=== PATIENT | male | born 1925 | race Caucasian/White ===

== ENCOUNTER 2016-06-05 06:02 | Day surgery (SDC) | payer MEDICARE, BC ==
[~2016-06-05] VITALS: Ht 172.7 cm; Wt 83.4 kg
[~2016-06-05 06:02] MED LIST: ASPI-557 PO; ENAL5TAB85 PO; FURO20TA6 PO; OMEG500C PO; SIMV20TA89 PO
--- OUTSIDE RECORDS SUMMARY | 2016-06-05 06:05 | XMS REPORT | Continuity of Care Document ---
Author Author [facility] Organization [facility] Address Unknown Phone Unavailable Allergies Active Description Code Type Severity Reaction Onset Reported/Identified Relationship to Patient Clinical Status Yes No Known Allergies [id number] Unknown N/A 12/27/2015 Medications Medication Packaging Start Date Stop Date Route Dosage Sig DOCUSATE SODIUM 12/28/2015 12/28/2015 BIDPRN ACETAMINOPHEN 12/28/2015 12/28/2015 Q4HPRN ACETAMINOPHEN 12/28/2015 12/28/2015 Q4HPRN ALUM-MAG HYDROXIDE-SIMETH 12/28/2015 12/28/2015 Q4HPRN MAGNESIUM HYDROXIDE 12/28/2015 12/28/2015 HSPRN SODIUM CHLORIDE 0.9 % 12/28/2015 12/28/2015 PRNIV HYDROCODONE-ACET 5-325MG 12/28/2015 12/28/2015 Q3HPRN ACETAMINOPHEN 12/28/2015 12/28/2015 Q4HPRN ONDANSETRON HCL 12/28/2015 12/28/2015 Q6HPRN MORPHINE 12/28/2015 12/28/2015 Q2HPRN DIAZEPAM 12/28/2015 12/28/2015 Q6HPRN ENALAPRIL MALEATE 12/28/2015 12/28/2015 QD ASPIRIN 12/28/2015 12/28/2015 0700 MULTIVITAMIN 12/28/2015 12/28/2015 QD FUROSEMIDE 12/28/2015 12/28/2015 QD SIMVASTATIN 12/28/2015 12/28/2015 HS Problems Date Dx Coded Attending Type Code Diagnosis Diagnosed By 03/01/2016 SID MARTINEZ E78.5 HYPERLIPIDEMIA, UNSPECIFIED SID MARTINEZ 03/01/2016 SID MARTINEZ I10 ESSENTIAL (PRIMARY) HYPERTENSION SID MARTINEZ 03/01/2016 SID MARTINEZ 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 SID MARTINEZ 03/01/2016 SID MARTINEZ 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 JUANROSACHRIS Simons 03/01/2016 SID MARTINEZ 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20 PLATELET COUNT 199 X10(3) 150-450 HEMOGLOBIN 14.7 g/dl 13.5-18.0 HEMATOCRIT 42.9 % 40.0-54.0 MCV 91.1 fL 80.0-96.0 MCH 31 pg 27-31 MCHC 34.3 % 32.0-36.0 LIPID PANEL - 12/28/15 09:40 CHOLESTEROL 142 mg/dl <=199 HDL CHOLESTEROL 49 mg/dl 40-60 TRIGLYCERIDES 79 mg/dl <=200 LDL, CALCULATED 77.2 mg/dl 0.0-99.0 VLDL, CALCULATED 15.8 mg/dl 0.0-130.0 CARDIAC RISK 3 CMP - COMPREHENSIVE METABOLIC PANEL - 12/28/15 09:40 GLUCOSE 108 mg/dl 74-106 BUN 17 mg/dl 7-18 CREATININE 1.28 mg/dl 0.70-1.30 eGFR 53 mL/min SODIUM (NA) 139 mEq/L 136-146 POTASSIUM, BLOOD 4.2 mEq/L 3.5-5.1 CHLORIDE 105 mEq/L 98-107 CO2 (BICARBONATE) 25 mEq/L 21-32 CALCIUM 8.9 mg/dl 8.5-10.1 ALBUMIN, SERUM 3.4 g/dl 3.4-5.0 PROTEIN, TOTAL 7.4 g/dl 6.4-8.2 AST (SGOT) 19 U/L 15-37 ALT (SGPT) 25 U/L 16-63 ALK PHOS 80 U/L 46-116 BILIRUBIN, TOTAL 0.6 mg/dl 0.2-1.0 HOLD SPECIMEN FOR BLOOD BANK - 12/28/15 09:40 HOLD SPECIMEN FOR BLOOD BANK ARC Encounters ACCT No. Visit Date/Time Discharge Status Pt. Type Provider Facility Loc./Unit Complaint [id number] 12/28/2015 09:01:00 12/28/2015 17: 38:00 DIS Outpatient SID MARTINEZ [facility] 110 CP
[2016-06-05 06:22] VITALS: BP 141/65; PULSE 67; RESP 18; TEMP 97.7; O2SAT 91; Ht 172.7 cm; Wt 83.4 kg
[2016-06-05 06:42] LABS: BASOPHILS # (AUTO) 0.1 T/MM3 (0-0.2); BASOPHILS % (AUTO) 0.9 % (0-2); EOSINOPHILS # (AUTO) 0.4 T/MM3 (0-0.5); EOSINOPHILS % (AUTO) 4.4 % (0-4); HGB - HEMOGLOBIN 13.8 GM/DL (13.5-17.5); IMMATURE GRANULOCYTE # (AUTO) 0.03 T/MM3 (0.00-0.03); IMMATURE GRANULOCYTE % (AUTO) 0.3 % (0.0-0.5); LYMPHOCYTES # (AUTO) 2.7 T/MM3 (1-4.8); LYMPHOCYTES % (AUTO) 29.4 % (23-45); MEAN CORPUSCULAR HGB 30.4 UUG (26-34); MEAN CORPUSCULAR HGB CONC(MCHC 32.9 GM/DL (31-37); MEAN CORPUSCULAR VOLUME 92.5 UM3 (80-100); MEAN PLATELET VOLUME 11.2 UM3 (9.4-12.4); MONOCYTES # (AUTO) 0.7 T/MM3 (0-0.8); MONOCYTES % (AUTO) 7.3 % (0-9.0); NEUTROPHILS #(AUTO)-ABSOLUTE 5.2 T/MM3 (1.8-7.7); NEUTROPHILS % (AUTO) 57.7 % (33-66); RED BLOOD COUNT 4.54 M/MM3 (4.50-5.90)
[2016-06-05] MEDS ORDERED: BUPIVACAINE 0.25% (2.5mg/ml) INJ 30ml SDV ONE (06:56)
[2016-06-05] MEDS ORDERED: LR 1,000 ML IV SCH (07:00)
[2016-06-05] MEDS ORDERED: LIDOCAINE 1% (10mg/ml) 2ml SDV INJ ONE (07:00)
--- NOTE | 2016-06-05 07:19 | ANESPREOP ---
Anesthesia Record Date and Time DATE: 06/05/16 TIME: 07:17 Pre-Op Diagnosis skin ca of face Proposed Surgical Procedure EXCISION OF BASAL CELL CARCINOMA RT. SIDE OF FACE Allergies: Coded Allergies: No Known Drug Allergies (Verified Allergy, Unknown, 06/05/16) Ht/Wt/BMI Height: 5 ' 8.00 " Weight: 83.400 kg BMI: 28.0 kg/m2 Vital Signs Date Time Temp Pulse Resp B/P Pulse Ox O2 Delivery O2 Flow Rate FiO2 06/05/16 06:22 97.7 67 18 141/65 91 Room Air Medications Inpatient Medications Current Medications Medications (Trade) Dose Ordered Sig/Melisa Start Time Stop Time Status Last Admin Dose Admin Lactated Ringer's (Lactated Ringers) 1,000 ml @ 50 mls/hr Q20H 06/05/16 07:00 06/05/16 07:02 50 MLS/HR Aspirin (Aspir 81) 81 Mg Tablet.dr, 1 TAB PO DAILY, (Reported) Last Taken: on 06/05/16 0000 Enalapril Maleate (Enalapril Maleate) 5 Mg Tablet, 5 MG PO DAILY, (Reported) Last Taken: on 06/04/16 1330 Furosemide (Lasix) 20 Mg Tablet, 20 MG PO DAILY , (Reported) Last Taken: on 06/04/16 1330 [place]-3 Fatty Acids (Fish Oil) 500 Mg Capsule.dr, 3 CAP PO DAILY, (Reported) Last Taken: on 06/05/16 0000 Simvastatin (Simvastatin) 20 Mg Tablet, 20 MG PO HS, (Reported) Last Taken: on 06/05/16 0000 Currently on Beta Anastacio: No Medical/Surgical History Anesthesia PMH: Reports: *Hypertension (PER H&P), 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 FOREARM), Depression, Hyperlipidemia, Obesity, Pneumonia (HX OF), Denies: *Angina, *[place], Anesthesia Reactions (NO AIRWAY ISSUES), Hepatitis, Hiatal Hernia, Malignant Hyperthermia, Reflux, Sleep Apnea Smoking Status: Never smoker Has pt. smoked today?: No Use Chewing Tobacco?: No Second Hand Exposure: No Substance Use Type: does not use Substance last used: unknown Alcohol Intake: none Last Drink: unknown Past Surgical History Orthopedic Surgeries: Abdominal Surgeries: Yes - LAP. ASSISTED SM BOWEL RESECTION, DENNIS PER H&P Genitourinary Surgeries: Cardiac Surgeries: Endocrine Surgeries: Reproductive Surgeries: Neurological Surgeries: Ear Surgeries: Nose Surgeries: Throat Surgeries: Other Surgeries: Yes - LUIS. CAT., COLONOSCOPY, EGD PER H&P Anesthesia Adverse Reactions: FOUND none Family Hx of Anesthesia Advers: none Hx of Motion Sickness: No Pertinent Findings Laboratory Tests 06/05/16 06:18 EKG Rhythm: Sinus Rhythm Physical Exam Respiratory: Bilat breath sounds equal, Lungs clear Cardiovascular: FOUND Regular rate, rhythm, FOUND No murmur Airway Assessment Mallampati Score: II TMD: 3 Fingerbreadths Neck Extension: Good Teeth: Upper Dentures, Partial Lower Dentures Overall Assessment: No Airway Concerns ASA: 2 Plan Anesthesia Plan: MAC Discussion Discussed risks/options/alternatives of anesthesia and questions answered. Patient consents. Nursing pain assessment noted. Present: Spouse Attestation Statement Prior to the delivery of any anesthetic medication, I examined the patient, developed the plan, obtained the patient's consent and discussed the risk and benefits of the procedure with the patient/guardian. DIEGO MICHEL CRNA Jun 05, 2016 07:19
[2016-06-05] MEDS ORDERED: MIDAZOLAM 2mg/2ml INJECTION ONE (07:51)
[2016-06-05] MEDS ORDERED: FENTANYL 250mcg/5ml INJECTION ONE (07:52)
--- NOTE | 2016-06-05 09:37 | GSPOSTPROC ---
Immediate Operative Note DATE: 06/05/16 TIME: 09:34 Postop Diagnosis: Basal cell skin carcinoma at right side of face Surgical Procedure: Other (Excision of basal cell skin carcinoma at right side of face) Surgeon: Kristina ASA: 2 PEARL NGUYEN MD Jun 05, 2016 09:37
[2016-06-05 09:38] VITALS: BP 138/70; PULSE 68; RESP 12; TEMP 97.6; O2SAT 94
[2016-06-05] MEDS ORDERED: ACETAMINOPHEN 500 MG TABLET PO PRN (09:45)
[2016-06-05] MEDS ORDERED: OXYCODONE I.R. 5 MG TABLET PO PRN (09:45)
[2016-06-05] MEDS ORDERED: PROMETHAZINE 25 MG INJECTION IV PRN (09:45)
[2016-06-05] MEDS ORDERED: ONDANSETRON 4mg/2ml INJECTION IV PRN (09:45)
[2016-06-05] MEDS ORDERED: IBUPROFEN 200 MG TABLET PO PRN (09:45)
[2016-06-05 09:54] VITALS: BP 131/69; PULSE 73; RESP 14; O2SAT 91
[2016-06-05 10:08] VITALS: BP 138/70; PULSE 74; RESP 16; O2SAT 94
[2016-06-05 10:25] VITALS: BP 146/67; PULSE 74; RESP 22; O2SAT 94
[2016-06-05 10:39] VITALS: BP 115/67; PULSE 66; RESP 22; O2SAT 95
--- NOTE | 2016-06-05 11:06 | ANESPO ---
Post-Op Note Date 06/05/16 Time: 11:05 Status Pt Participated in Evaluation: Pt participated in person Vital Signs Date Time Temp Pulse Resp B/P Pulse Ox O2 Delivery O2 Flow Rate FiO2 06/05/16 10:39 66 22 115/67 95 Room Air 06/05/16 09:38 97.6 Respiratory Function: Airway patent, Regular respirations Cardiovascular Function: Regular pulse Mental Status: Alert/oriented Pain Level Intensity: 0 Hydration: Taking po fluids Complications during Recovery None apparent Post-Anesthesia Notes pt. [email or web address] Follow-Up Instructions Instructions Per Surgeon Additional Information none DIEGO MICHEL CRNA Jun 05, 2016 11:06
--- NOTE | 2016-06-06 07:42 | OPNOTEF ---
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 OPERATION Excision of invasive basal cell skin carcinoma at right side of face with closure of the excision site with a single pedicle rotation flap. SURGEON Dr. Acevedo ANESTHESIA MAC ASA CLASS 2 FINDINGS This patient did have a 2.1 cm x 1.5 cm skin lesion at the right side of the face. The skin lesion was located in a location over the angle of the jaw. Previous biopsy of the skin lesion on 04/30/2016 had shown that this was an invasive basal cell skin carcinoma. A piece of skin and subcutaneous tissue containing this skin lesion at the right side of the face was excised and submitted as a specimen for frozen section examination by a pathologist. The pathologist did return a verbal frozen section examination report indicating that all resection margins of the specimen submitted today were free of tumor involvement.. DESCRIPTION OF OPERATION The patient was placed in supine position on the operating table with his head turned to the left. The right side of the face, right side of the neck, right supraclavicular area, right infraclavicular area and right upper arm were all prepped and draped in routine sterile fashion. The right upper arm was prepped as a potential donor site for a full-thickness skin graft. The patient was premedicated with intravenous sedation medication administered by the nurse superintendent sanitation. The skin and subcutaneous tissue at the skin lesion site at the right side of the face were infiltrated with bupivacaine 0.25% without epinephrine. A scalpel was used to excise a piece of skin and subcutaneous tissue containing this 2.1 cm x 1.5 cm skin lesion along with a 2-mm margin of normal-appearing skin on all sides of the skin lesion. This specimen of skin and subcutaneous tissue was pinned to a cloth drape with some needles and superior, inferior, medial and lateral margins were marked on the cloth drape around specimen to orient the specimen for the pathologist. The specimen was then submitted for frozen section examination by the pathologist. Hemostasis was achieved at the excision site wound at the right side of the face by coagulation of bleeding points with the monopolar electrosurgery device with fine needle tip electrode. A verbal frozen section examination report was then returned from the pathologist with findings as described above. A decision was made at this time to attempt to close the excision site with a single pedicle rotation flap. Plans were made to rotate a single pedicle rotation flap from a donor site inferior to the excision site wound. An incision line along the margin of the rotation flap was marked on the skin with a skin marker pen. Additional bupivacaine was infiltrated into the skin and subcutaneous tissue at the single pedicle rotation flap. The incision was made along the margin of the rotation flap with a scalpel. The rotation flap was dissected free of underlying tissue with the monopolar electrosurgery device with fine needle tip electrode. Hemostasis was achieved throughout the wound by coagulation of bleeding points with the monopolar electrosurgery device. The rotation flap was then rotated superiorly about its pivot point into the skin lesion excision site. The margins of the single pedicle rotation flap were then approximated to the margin of the skin lesion excision site and the curved margin of skin at the single pedicle rotation flap donor site. Skin margins were first approximated to one another with a series of interrupted subcuticular stitches using 3-0 Vicryl suture to close the wound. Skin margins were then approximated with skin ede. A small back cut was made at the base of the rotation flap as this was done to decrease any tension on the wound closure. There was a dog-ear at the base of the rotation flap which needed to be corrected as all this all this was completed. Additional bupivacaine was infiltrated into skin and subcutaneous tissue throughout the procedure as needed to maintain patient comfort. The patient did continue to receive intravenous sedation medication administered by the nurse superintendent sanitation throughout the procedure as needed to maintain patient comfort. There did not appear to be much tension on any of the incision lines at the end of the procedure. There appeared to be good blood supply to the rotation flap. The patient did appear to tolerate the operation well. Sterile dressings were applied to the wound at the right side of the face. The patient was transferred from the operating room in satisfactory condition. GINA
== END 2016-06-05 11:06 | disposition home or self-care (01) ==
LOC: NSC 06:02
PROVIDERS: ATTEND Surgery
DX: C44.319 Basal cell carcinoma of skin of other parts of face (principal)
CPT/HCPCS: 14040; 36415; 85025; J2250; J3010; J7120; 88305; 88331; 88332